=== PATIENT | female | born 1985 | race Caucasian/White ===

== ENCOUNTER → 2021-09-27 09:43 | Outpatient (REF) | payer MEDICAID, SELFPAY ==
--- NOTE | 2021-09-27 10:30 | CA_ITS ---
Transthoracic Echocardiogram Patient (Last, First, Middle): Mp Stephenson, Gender: Female Date of : 1985 Age: 36 Procedure Date: 09/27/2021 Procedure Type: Transthoracic Echocardiogram Location: OP Height: 160.02 cm Weight: 61.01 kg BSA: 1.63 m2 Heart Rate: bpm BP: 88 / 58 mmHg Sports Leadership Instructor: BARBI Referring MD: Ellen Morgan DO Symptoms: Z82.49 FAM HX ISCHEMIC HEART DISEASE Study Quality: Fair ECG Rhythm: Sinus Conclusions: - The left ventricular systolic function is normal. The calculated ejection fraction is 56% by biplane method. - No obvious valvular pathology seen on this study. Findings Left Ventricle Normal left ventricular cavity size. There is normal left ventricular wall thickness. The left ventricular systolic function is normal. The calculated ejection fraction is 56% by biplane method. There is no evidence of regional wall motion abnormalities. Diastolic function is normal for age. Right Ventricle Normal right ventricular cavity size and systolic function. Atria Both atria are normal in size. Aortic Valve There is a normal trileaflet aortic valve. There is no aortic valve stenosis. There is no aortic valve regurgitation. Mitral Valve The mitral valve appears normal. There is trace mitral valve regurgitation. There is no mitral valve stenosis. Pulmonic Valve The pulmonic valve was not well visualized. Tricuspid Valve Normal tricuspid valve structure. There is trace tricuspid valve regurgitation. The pulmonary artery systolic pressure is normal. Great Vessels The aorta was not well visualized. The aortic annulus is normal in size. Venous The inferior vena cava is normal in size and collapses greater than 50% with inspiration. Pericardium/Pleural There is no evidence of pericardial effusion. Prior Study Comparison No significant change compared to prior study dated: 10/05/2015. Recommendations, Care & Conclusions No obvious valvular pathology seen on this study. Measurements 2D Linear Measurements IVSd: 0.58 0.6-0.9/0.6-1.0 cm LVIDd: 4.64 3.9-5.3/4.2-5.9 cm LVIDd Index: 2.85 2.4-3.2/2.2-3.1 cm/m2 LVIDs: 3.05 2.0-3.6 cm LVPWd: 0.76 0.7-1.1 cm Ao Root: 2.80 2.1-3.5 cm LA Diam: 3.30 2.7-3.8/3.0-4.0 cm LAIDs Index: 2.02 1.5-2.3 cm/m2 LV Mass: 118.62 67-162/88-224 g LV Mass Index: 72.77 43-95/49-115 g/m2 LVOT Diam: 2.00 3.0+(-)1.3 cm 2D Systolic Function EF 4C: 53.00 >55% EF 2C: 57.00 >55% EF BiP: 55.80 >55% Mitral Valve MV Pk E: 0.71 MV PK A: 0.40 MV Decel Time: 132.00 E/A: 1.80 E'Lateral: 11.70 E'Medial: 10.80 E/E' Med: 6.50 E/E' Lat: 6.00 PHT: 39.00 MVA PHT: 5.64 Decel Izard: 5.36 Aortic Valve AoV Pk Siddharth: 1.14 AoV Pk Grad: 5.00 LVOT LVOT Pk Siddharth: 0.84 LVOT Mn Siddharth: 0.54 LVOT VTI: 0.19 LVOT Pk Grad: 3.00 LVOT Mn Grad: 1.00 LVOT Diam: 2.00 LVOT Area: 3.14 Diastolic Function MV Pk E: 0.71 MV Pk A: 0.40 E/A: 1.80 E'Medial: 10.80 E/E' Med: 6.50 E' Laterial: 11.70 E/E' Lat: 6.00 Right Ventricle TAPSE (mm): 2.04 TVS' Siddharth: 13.10 Tricuspid Valve TR Pk Siddharth: 1.93 TR Pk Grad: 15.00 RA Press: 3.00 RVSP: 18.00 Great Vessels Aorta Ao Root-2D: 2.80 2.0-3.7 cm Updated in Other Vendor System with Status of Final Jerrod Graham MD electronically signed on 09/28/2021 2:19:02 PM with status of Final
== END ==
LOC: HO.CARD 09:43
PROVIDERS: PCP Family Medicine; Visit Provider Family Medicine
DX: Z82.49 Family history of ischemic heart disease and other diseases of the circulatory system (principal)
CPT/HCPCS: 93306

== ENCOUNTER → 2021-10-04 12:14 | Outpatient (BNVA) | payer MEDICAID, SELFPAY | PROVIDERS: PCP Family Medicine; Referring Provider Family Medicine; Visit Provider Internal Medicine | DX: Z82.49 Family history of ischemic heart disease and other diseases of the circulatory system (principal); F17.210 Nicotine dependence, cigarettes, uncomplicated | CPT/HCPCS: 93005; 99202 ==

== ENCOUNTER 2021-10-16 13:37 | Outpatient (REF) | payer MEDICAID, SELFPAY ==
--- NOTE | ~2021-10-16 | CT_ITS ---
EXAMINATION: CT ABDOMEN WITHOUT CONTRAST CLINICAL INFORMATION: Aortic aneurysm COMPARISON: [facility] July 2019, abdominal ultrasound November [address] of the abdomen and pelvis July 2011 TECHNIQUE: Contiguous axial thin section helical images of the abdomen were performed without contrast. The data set was reformatted in the coronal and sagittal planes and reviewed on an independent workstation. This CT examination was performed using dose optimization techniques as appropriate, variously including the following: *Automated exposure control *Adjustment of mA and/or kV according to patient size (this includes techniques or standardized protocols for targeted exams where dose is matched to indication/reason for exam; i.e. extremities or head) *Use of iterative reconstruction technique DLP: 175 mGy-cm FINDINGS: LUNG BASES: 3 mm peripheral or subpleural right lower lobe nodule axial image 10 series 3. LIVER, GALLBLADDER, BILIARY TREE: There is a 6 mm low-attenuation lesion in the posterior segment of the right lobe of the liver axial image 16 series 3. This is difficult to characterize due to small size. Hounsfield units measure 30-40 which is not characteristic of a simple cyst. There are smaller low-attenuation lesions in the central medial segment of the left lobe measuring 2 mm and question peripheral lateral segment of the left lobe axial image 12 series 3. These lesions are not seen on previous CT or ultrasound from 2010 and 2011. Liver is otherwise unremarkable. The gallbladder is unremarkable. There is no biliary duct dilatation. PANCREAS: Normal SPLEEN: Normal ADRENAL GLANDS AND KIDNEYS: Normal BOWEL LOOPS: Normal. The visualized appendix is normal. LYMPH NODES: Normal. VASCULAR: The abdominal aorta is normal in caliber. No aneurysm is seen. BONES: Normal CT/CT abdomen wo con IMPRESSION: Normal caliber abdominal aorta. No aneurysm seen. 3 small liver lesions. These are difficult to characterize due to small size and lack of IV contrast. These are not seen on previous imaging from 2010 and 2011. This could be further evaluated with liver MRI if clinically indicated. Fleischner guidelines were followed.
--- NOTE | ~2021-10-16 | CT_ITS ---
EXAMINATION: CT CHEST WITHOUT CONTRAST CLINICAL INFORMATION: Aortic aneurysm COMPARISON: None TECHNIQUE: Multidetector volumetric CT imaging of the chest was done. Axial MIP volume rendering provided. Sagittal and coronal reformatted images were obtained. This CT examination was performed using dose optimization techniques as appropriate, variously including the following: *Automated exposure control *Adjustment of mA and/or kV according to patient size (this includes techniques or standardized protocols for targeted exams where dose is matched to indication/reason for exam; i.e. extremities or head) *Use of iterative reconstruction technique DLP: 113 mGy-cm FINDINGS: DAIRY EQUIPMENT REPAIRER: Unremarkable LUNGS: There is evidence of mild paraseptal emphysema. There is a 2 mm left upper lobe nodule axial image 206 series 7. There is a 3 mm peripheral or subpleural left lower lobe nodule adjacent to the fissure axial image 254 series 7. There is a 3 mm right middle lobe nodule axial image 325 series 7. There is a 3 mm peripheral or subpleural right lower lobe nodule axial image 460 series 7. MEDIASTINUM: The mediastinum is normal. The thoracic aorta is normal in caliber. PLEURA: There is no pleural effusion. No pleural mass or thickening. AXILLA: No lymphadenopathy. UPPER ABDOMEN: Unremarkable. OSSEOUS STRUCTURES: Unremarkable. CT/CT chest wo con IMPRESSION: Mild paraseptal emphysema. Small pulmonary nodules. According to the UPDATED 2017 Fleischner Society recommendations, the advised follow-up imaging for less than 6 mm nodule: Low risk, no chest CT follow-up and high risk, optional chest CT follow-up in one year. Normal caliber thoracic aorta. Fleischner guidelines were followed.
== END 2021-10-16 13:38 | disposition home or self-care (01) ==
LOC: HO.CT 13:37
PROVIDERS: PCP Family Medicine; Visit Provider Internal Medicine
DX: I71.9 Aortic aneurysm of unspecified site, without rupture (principal); I71.00 Dissection of unspecified site of aorta
CPT/HCPCS: 71250; 74150

== ENCOUNTER 2022-04-15 13:02 | Outpatient (REF) | payer MEDICAID, SELFPAY ==
--- NOTE | ~2022-04-15 | MR_ITS ---
EXAMINATION: MR ABDOMEN WITHOUT AND WITH CONTRAST CLINICAL INFORMATION: Evaluation of liver lesions noted on recent CT. COMPARISON: CT abdomen dated from 10/16/2021. TECHNIQUE: MR abdomen was performed without and with use of 6 mL intravenous Gadavist gadolinium contrast. Postcontrast images are performed in multiphase dynamic sequences. Imaging was performed in 3 planes. FINDINGS: LUNG BASES: The visualized lung bases are unremarkable. LIVER, GALLBLADDER, AND BILIARY TREE: Signal loss in the opposed-phase dual-echo images suggesting the presence of hepatic steatosis. Otherwise, the liver is normal in size and shape. The lesions in question correspond to T2 bright avascular simple cysts with a few additional simple cysts suboptimally seen on prior CT, for which no imaging follow-up is recommended, for instance measuring 1 cm in the right lobe (102:45) and 0.7 cm in the left lobe (102:30). No enhancing liver lesions. PANCREAS: Unremarkable. SPLEEN: Normal. ADRENAL GLANDS: Normal. KIDNEYS AND URETERS: The kidneys are normal in size, shape, and enhance symmetrically. No hydronephrosis. No perinephric stranding. GASTROINTESTINAL TRACT: No bowel obstruction. No ascites or fluid collection. ABDOMINAL WALL: No significant hernia is appreciated. LYMPH NODES: No lymphadenopathy by size criteria. VASCULAR: Unremarkable. OSSEOUS STRUCTURES: Marrow signal normal. MR/MR abdomen wo/w con IMPRESSION: Simple liver cysts for which no imaging follow-up is recommended.
== END 2022-04-15 13:03 | disposition home or self-care (01) ==
LOC: HO.MRI 13:02
PROVIDERS: Visit Provider Family Medicine
DX: K76.9 Liver disease, unspecified (principal)
CPT/HCPCS: 74183; A9585

== ENCOUNTER 2022-04-23 13:44 | Outpatient (REF) | payer MEDICAID, SELFPAY ==
--- NOTE | ~2022-04-23 | MM_ITS ---
EXAMINATION: MM DIAGNOSTIC DIGITAL BREAST TOMOSYNTHESIS, BILATERAL US DIAGNOSTIC ULTRASOUND BREAST, RIGHT CLINICAL INFORMATION: 36-year-old with palpable area outer right breast for approximately one month. The lifetime risk of breast cancer based on the Tyrer-Cuzick Model is 13%. COMPARISON: Baseline mammography 12/05/2016, bilateral breast ultrasound 12/12/2016. TECHNIQUE: Digital breast tomosynthesis is performed in both the craniocaudal and mediolateral oblique views along with computer-aided detection (CAD). Synthesized 2D images are generated from the tomosynthesis. Ultrasound right breast is targeted to the area of clinical concern outer breast using grayscale imaging and color Doppler without and with harmonics. FINDINGS: The breasts are heterogeneously dense, which may obscure small masses (ACR BI-RADS breast composition Category c). There is no significant mass, developing density, architectural abnormality. Circumscribed nodule consistent with cyst on prior ultrasound upper outer left breast is no longer demonstrated. There is no mammographic correlate on the right for patient's symptoms. There are no abnormal calcifications. The axilla and skin contours are unremarkable. Ultrasound right breast demonstrates a simple cyst 9:00 position 6 cm from nipple corresponding to the area of palpable concern and measuring 1.4 x 1.1 cm. There is strong normal increased through transmission of sound. No associated color flow. No solid mass or architectural abnormality in the targeted area. Results are discussed with the patient at time of visit. MM/MM tomosynthesis diagnostic BI IMPRESSION: -No mammographic evidence of malignancy. -Simple cyst outer right breast 1.4 cm, corresponding to patient's palpable concern. ASSESSMENT: BI-RADS 2: Benign RECOMMENDATION: Routine annual mammography screening beginning age 40, or earlier as clinical risk factors warrant. This patient's information was entered into a reminder system with a target due date for their next mammogram.
--- NOTE | ~2022-04-23 | CT_ITS ---
EXAMINATION: CT CHEST WITH CONTRAST CLINICAL INFORMATION: Follow-up pulmonary nodules COMPARISON: Previous chest CT September 2021 TECHNIQUE: Multidetector volumetric CT imaging of the chest was obtained after the administration of 65 mL of Omnipaque 350 intravenous contrast without immediate adverse reactions. Axial MIP volume rendering provided. Sagittal and coronal reformatted images were obtained. This CT examination was performed using dose optimization techniques as appropriate, variously including the following: *Automated exposure control *Adjustment of mA and/or kV according to patient size (this includes techniques or standardized protocols for targeted exams where dose is matched to indication/reason for exam; i.e. extremities or head) *Use of iterative reconstruction technique DLP: 87 mGy-cm FINDINGS: MRB ENGINEER: Unremarkable LUNGS: There is paraseptal emphysema. Small pulmonary nodules are stable. No new pulmonary nodule is seen. No endobronchial or endotracheal lesion. MEDIASTINUM: The mediastinum is normal. PLEURA: There is no pleural effusion. No pleural mass or thickening. AXILLA: No lymphadenopathy. UPPER ABDOMEN: There are several small low-attenuation liver lesions. These are better seen with IV contrast. The largest measures 6 mm axial image 44 and 45 series 4. OSSEOUS STRUCTURES: Unremarkable. CT/CT chest w IV con IMPRESSION: Paraseptal emphysema. Stable small pulmonary nodules from September 2021. Fleischner guidelines were followed.
[2022-04-23] MEDS: iohexoL 350 MG/ML 75 ML INFUS..BTL 65 ML IV (15:45)
== END 2022-04-23 13:45 | disposition home or self-care (01) ==
LOC: HO.MAMMO 13:44
PROVIDERS: PCP Family Medicine; Visit Provider Family Medicine
DX: N64.4 Mastodynia (principal); N63.11 Unspecified lump in the right breast, upper outer quadrant
CPT/HCPCS: 71260; 76642; 77062; 77066; Q9967

== ENCOUNTER 2022-04-23 14:45 | Outpatient (REF) | payer MEDICAID, SELFPAY | END 2022-04-23 14:46 | disposition home or self-care (01) | LOC: HO.CT 14:45 | PROVIDERS: Visit Provider Family Medicine | DX: Z13.89 Encounter for screening for other disorder (principal) ==

== ENCOUNTER 2022-05-23 13:51 | Outpatient (REF) | payer MEDICAID, SELFPAY ==
--- NOTE | 2022-05-23 | PFT_ITS ---
FLOWS: FEV1 87% of predicted at 2.62 L. FVC 83% of predicted at 2.98 L. FEV1 to FVC ratio of 0.88. No bronchodilator response except in small to medium airways. LUNG VOLUMES: Total lung capacity 72% of predicted at 3.54 L. Residual volume 35% of predicted at 0.52 L. Slow vital capacity 88% of predicted at 3.02 L. Expiratory reserve volume 109% of predicted at 1.33 L. Diffusion capacity is mildly decreased, diffusion capacity adjust to normal after correction for alveolar ventilation. IMPRESSION: Mild restrictive ventilatory defect with positive bronchodilator response. Abel Ray MD AP/MODL / [id number]
--- NOTE | ~2022-05-23 | US_ITS ---
EXAMINATION: US PELVIS CLINICAL INFORMATION: Pelvic and perineal pain. COMPARISON: None. TECHNIQUE: Ultrasound of the pelvis is performed using both transabdominal and transvaginal transducers along with Doppler. Transvaginal imaging is performed due to inadequate visualization transabdominally. FINDINGS: UTERUS: The uterus is retroverted, retroflexed measures 8.0 cm in length, 3.3 cm in AP and 4.7 cm in transverse dimension. The double wall endometrial thickness is 0.3 cm. The uterus is smooth in contour and has normal myometrial echogenicity. There is a small echogenic fibroid in the fundus measuring 0.7 x 0.8 x 0.6 cm. ADNEXA: Both ovaries are visualized. There is normal color flow to the adnexa. There is no ovarian torsion. There is no pelvic ascites or fluid collection. Right ovary measures 2.8 x 1.7 x 1.9 cm and volume 4.6 mL. There is anechoic cyst measuring 1.4 x 1.0 x 1.4 cm. Previously right ovary measured 2.8 x 1.4 x 2.9 cm. Left ovary measures 3.0 x 1.9 x 1.5 cm and volume 4.7 mL. There is anechoic cyst measuring 0.9 x 0.8 x 0.9 cm. Previously left ovary measured 3.1 x 1 0.7 to 2.5 cm. There is simple appearing small amount of free fluid in the right adnexa. Prominent dilated vessels visualized in the myometrium. US/US pelvic and transvaginal IMPRESSION: Small uterine fibroid in the fundus. The uterus is otherwise unremarkable. Unremarkable ovaries. There is small amount of free fluid in the right adnexa and prominent myometrial vessels.
== END 2022-05-23 13:52 | disposition home or self-care (01) ==
LOC: HO.US 13:51
PROVIDERS: Visit Provider Family Medicine
DX: J44.9 Chronic obstructive pulmonary disease, unspecified (principal); R10.2 Pelvic and perineal pain
CPT/HCPCS: 76830; 76856; 94060; 94727; 94729

== ENCOUNTER 2022-08-12 10:51 | Outpatient (REF) | payer MEDICAID, SELFPAY ==
[2022-08-14 01:34] LABS: HPV mRNA E6/E7 rflx Not Detected (Not Detected)
== END 2022-08-12 10:52 | disposition home or self-care (01) ==
LOC: HO.LNP 10:51
PROVIDERS: Visit Provider Obstetrics & Gynecology
DX: Z01.419 Encounter for gynecological examination (general) (routine) without abnormal findings (principal); Z11.51 Encounter for screening for human papillomavirus (HPV)
CPT/HCPCS: 86780; 86803; 87340; 87389; 87480; 87491; 87510; 87591; 87624; 87660; 88142

== ENCOUNTER 2022-08-12 10:55 | Outpatient (REF) | payer MEDICAID, SELFPAY ==
[2022-08-12 14:07] LABS: CT PCR NOT DETECTED (Not Detect.); NG PCR NOT DETECTED (Not Detect.)
[2022-08-13 09:15] LABS: BV Int Neg Control Negative (Negative); BV Int Pos Control Positive (Positive)
[2022-08-14 04:38] LABS: Syphilis Screen Nonreactive (Nonreactive)
[2022-08-14 05:25] LABS: ~Hepatitis C Antibody Nonreactive (Nonreactive)
[2022-08-14 06:02] LABS: HBsAGNum1 0.33 S/CO (0.00-0.99); HIV AB/AG Nonreactive (Nonreactive); HIV Num 1 0.06 S/CO (0.00-0.99); Hepatitis B Surface Antigen Negative (Negative)
== END 2022-08-12 10:56 | disposition home or self-care (01) ==
LOC: HO.LAB 10:55
PROVIDERS: PCP Family Medicine; Visit Provider Obstetrics & Gynecology
DX: Z11.3 Encounter for screening for infections with a predominantly sexual mode of transmission (principal); Z11.4 Encounter for screening for human immunodeficiency virus [HIV]
CPT/HCPCS: 86780; 86803; 87340; 87389; 87480; 87491; 87510; 87591; 87660

== ENCOUNTER 2024-08-02 11:13 | Outpatient (REF) | payer MEDICAID, SELFPAY ==
[2024-08-02 13:30] LABS: Syphilis Screen Nonreactive (Nonreactive)
[2024-08-02 13:31] LABS: HBsAGNum1 0.39 S/CO (0.00-0.99); HIV AB/AG Nonreactive (Nonreactive); HIV Num 1 0.05 S/CO (0.00-0.99); Hepatitis B Surface Antigen Negative (Negative); ~HepC Num1 0.46 S/CO (0.00-0.79); ~Hepatitis C Antibody Nonreactive (Nonreactive)
[2024-08-02 14:54] LABS: CT PCR NOT DETECTED (Not Detect.); NG PCR NOT DETECTED (Not Detect.)
[2024-08-03 11:02] LABS: Bacterial Vaginosis PCR NEGATIVE (Negative); Candida Group PCR NOT DETECTED (Not Detect); Candida glab krusei PCR NOT DETECTED (Not Detect); Trichomonas vaginalis PCR NOT DETECTED (Not Detect)
== END 2024-08-02 11:14 | disposition home or self-care (01) ==
LOC: HO.LNP 11:13
PROVIDERS: PCP Family Medicine; Visit Provider Obstetrics & Gynecology
DX: N76.0 Acute vaginitis (principal); B96.89 Other specified bacterial agents as the cause of diseases classified elsewhere
CPT/HCPCS: 0352U; 86780; 86803; 87340; 87389; 87491; 87591; 99212; 99459

== ENCOUNTER 2024-08-02 11:13 | Outpatient (AMB) | payer MEDICAID, SELFPAY ==
--- NOTE | 2024-08-02 11:35 | A.OFFVIS_ITS ---
Vital Signs 08/02/24 11:37 Height 5 ft 3 in Weight 130 lb BMI 23.0 Intake Visit Reasons: Vaginal discharge Procurement Services Manager Required: Yes Procurement Services Manager Language: Coil Tester Services: Procurement Services Manager Present (in person) Procurement Services Manager Name: Emiliana VALERIO Information Interpreted: non-clinical & clinical Wrapper Cashier: Wrapper Cashier Present (Emiliana VALERIO) Accompanied by: Self / Same As Patient Allergies No Known Allergies Allergy (Verified 08/02/24 11:43) HPI Comments Details: Presenting complaining of vulvovaginal discharge associated with itching and foul odor. No other symptoms PFSH Medical History Family history of aortic dissection Surgical History History of tubal ligation Family History Family/Other Aortic dissection Father No problems noted. Mother No problems noted. Social History Patient Tobacco Use Status: Current everyday Tobacco user Cigarettes Per Day: 6 Female Reproductive History Menstrual Age of Menarche: 11 Review of Systems Const All systems reviewed & are unremarkable except as noted in HPI and below Physical Exam Vital Signs: BMI result Body Mass Index 23.0 General: Yes no CVA tenderness External Female Exam: normal external appearance and normal appearance of the urethra Speculum Exam - Vagina: normal appearance of the vagina, normal palpation, no lesions and no masses Speculum Exam - Cervix: normal appearance of the cervix, normal palpation, no lesions, no masses and nontender Bimanual exam- vagina & uterus: normal bimanual exam, normal palpation, uterine size normal, normal palpation, uterine shape normal, No Cervical tenderness present and non-tender Bimanual Exam- Adnexa, other: normal adnexae Back/Spine/Pelvis Back: no CVA tenderness Assessment & Plan Assessment & Plan (1) Vulvovaginitis: Comment: Mixed Code(s): N76.0 - Acute vaginitis Category: Medical Plan: GC and chlamydia cultures with BV panel taken. Will treat with Terazol 0.8% q.h.s. for 3 days , screen for STI, HepBs Ag, HIV, RPR, Hep C Ab ordered. In addition to Flagyl 500 mg p.o. b.i.d. x 7 days, Instructions given to the patient to refrain from sexual activity or to use condoms consistently and correctly during the BV treatment regimen, not to douch, it might increase the risk for relapse, and to call if symptoms persist or recur. Orders: Orders Hepatitis B Surface Antigen Today B96.89 - Other specified bacterial agents as the cause of diseases classified elsewhere, N76.0 - Acute vaginitis HIV Ab/Ag Today B96.89 - Other specified bacterial agents as the cause of diseases classified elsewhere, N76.0 - Acute vaginitis Syphilis Screen Today B96.89 - Other specified bacterial agents as the cause of diseases classified elsewhere, N76.0 - Acute vaginitis Hepatitis C Antibody Today B96.89 - Other specified bacterial agents as the cause of diseases classified elsewhere, N76.0 - Acute vaginitis Medications: New terconazole 0.8% 1 appful vaginal BEDTIME 3 days 20 grams 0RF metronidazole 500 mg PO BID 7 days 14 tabs 0RF Coding Level of Care Code Est Pt Level 3 (24580) Diagnoses Vulvovaginitis N76.0
[2024-08-02 11:37] VITALS: BMI 23.0
== END 2024-08-02 12:03 | disposition home or self-care (01) ==
PROVIDERS: PCP Family Medicine; Visit Provider Obstetrics & Gynecology
DX: N76.0 Acute vaginitis (principal)
CPT/HCPCS: 99213

== ENCOUNTER 2024-08-02 12:00 | Outpatient (REF) | payer MEDICAID, SELFPAY | END 2024-08-02 12:01 | disposition home or self-care (01) | LOC: HO.LAB 12:00 | PROVIDERS: PCP Obstetrics & Gynecology; Visit Provider Family Medicine | DX: Z13.89 Encounter for screening for other disorder (principal) ==